=== PATIENT | female | born 1960 | race Caucasian/White ===

== ENCOUNTER 2024-07-25 13:30 | Outpatient (CLI) | payer BC, OTHER | END 2024-07-25 23:59 | disposition home or self-care (01) | LOC: MRI02 13:30 | PROVIDERS: ATTEND Nurse Practitioner Adult Health | DX: M47.814 Spondylosis without myelopathy or radiculopathy, thoracic region (principal); M47.26 Other spondylosis with radiculopathy, lumbar region; M48.07 Spinal stenosis, lumbosacral region; M51.26 Other intervertebral disc displacement, lumbar region | CPT/HCPCS: 72146 ==